=== PATIENT | male | born 1960 | race Caucasian/White ===

== ENCOUNTER 2016-09-30 12:39 | Emergency (ER) | payer OTHER ==
[~2016-09-30] VITALS: Ht 185.4 cm; Wt 143.0 kg
[~2016-09-30 12:39] MED LIST: B-COTAB41 PO; INDO25CA PO; LISI-360 PO; OMEP20TA39 PO
[2016-09-30 12:41] VITALS: BP 172/80; PULSE 90; RESP 17; TEMP 97.8; O2SAT 99
--- NOTE | 2016-09-30 12:52 | PD ---
HPI Chief Complaint: Pain: Acute or Chronic Time Seen by Provider: 12:52 Travel History International Travel<30 days: No Contact w/Intl Traveler<30days: No Traveled to known affect area: No History of Present Illness HPI 55-year-old male coming in with history of falling while pulling a pallet at work. Patient fell backwards landing on his right posterior lateral shoulder. Patient fell on 28 September 2016. This is his first visit for this accident. Patient complains of pain in the right posterior lateral shoulder with inability to raise his shoulder anteriorly posteriorly or laterally. Patient has a history of injury to the same shoulder 30 years ago with a pin placed according to the patient. Patient denies neck pain, head injury, or loss of consciousness. He denies injury to any part of his body other than the shoulder. He has no complaints of neuro symptoms in the right arm or hand including weakness, numbness, or tingling. He states the pain is a 10 over 10, and worse with any type of movement of the right shoulder. He is allergic to penicillin. PFSH Past Medical History High Cholesterol: Yes Past Surgical History Other Surgery: Yes (GASTROPLASTY) Social History Alcohol Use: No Tobacco Use: No Substance Use: No Allergies-Medications (Allergen,Severity, Reaction): Coded Allergies: Penicillin (Verified Allergy, Intermediate, FACE TURNS RED, 09/30/16) Reported Meds & Prescriptions Reported Meds & Active Scripts Active Review of Systems Except as stated in HPI: all other systems reviewed are Neg General / Constitutional: No: Fever Eyes: No: Visual changes HENT: No: Headaches Cardiovascular: No: Chest Pain or Discomfort Respiratory: No: Shortness of Breath Gastrointestinal: No: Abdominal Pain Genitourinary: No: Dysuria Musculoskeletal: No: Pain Skin: No Rash Neurologic: No: Weakness Psychiatric: No: Depression Endocrine: No: Polydipsia Hematologic/Lymphatic: No: Easy Bruising Physical Exam Narrative GENERAL: Patient appears in mild to moderate distress. SKIN: Warm and dry. Normal color. Normal turgor. No signs of trauma to the right arm or shoulder. HEAD: Atraumatic. Normocephalic. EYES: Pupils equal and round. No scleral icterus. No injection or drainage. ENT: No nasal bleeding or discharge. Mucous membranes pink and moist. Pharynx is normal. NECK: Trachea midline. No bony tenderness or step-off. Range of motion is full. CARDIOVASCULAR: Regular rate and rhythm. RESPIRATORY: No accessory muscle use. Clear to auscultation. Breath sounds equal bilaterally. MUSCULOSKELETAL: Extremities without clubbing, cyanosis, or edema. No obvious deformities. Right shoulder does not have any obvious deformities or suggestion of dislocation. Patient has pain with motion more than palpation. Pain is worse with both active and passive motion with external rotation, posterior rotation, flexion or extension of the right shoulder. 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 NEUROLOGICAL: Awake and alert. No obvious cranial nerve deficits. Motor grossly within normal limits. Five out of 5 muscle strength in the arms and legs except as noted in muscle skeletal exam.. Normal speech. PSYCHIATRIC: Appropriate mood and affect; insight and judgment normal. Data Data Last Documented VS Vital Signs Date Time Temp Pulse Resp B/P Pulse Ox O2 Delivery O2 Flow Rate FiO2 09/30/16 12:41 97.8 90 17 172/80 99 Orders Shoulder, Complete (>2vws) (09/30/16 13:02) Ice/Cold Pack (09/30/16 13:02) Prednisone (Deltasone) (09/30/16 13:45) MDM Medical Decision Making Medical Screen Exam Complete: Yes Emergency Medical Condition: Yes Differential Diagnosis Fall workplace. Right shoulder contusion. Right shoulder rotator cuff injury. Possible fracture. Narrative Course Patient is medically stable at time of exam. X-ray of the right shoulder is obtained. X-ray shows no acute fracture or dislocation per radiologist. Patient is given prednisone 60 mg by mouth. Patient is given prednisone 20 mg twice a day 5 days. Patient is given Lortab 5/325 one every 6 hours when necessary #20. Patient is to use ice and heat as needed. Patient is put on restrictions of no use of right arm until cleared by Worker's Comp. provider. Worker's comp paperwork is completed. Diagnosis Primary Impression: Fall (on)(from) sidewalk curb, initial encounter Additional Impressions: Right shoulder injury Qualified Code: S49.91XA - Right shoulder injury, initial encounter Work related injury Patient Instructions: General Instructions Additional Instructions: X-ray shows no acute fracture or dislocation per radiologist. Patient is given prednisone 60 mg by mouth. Patient is given prednisone 20 mg twice a day 5 days. Patient is given Lortab 5/325 one every 6 hours when necessary #20. Patient is to use ice and heat as needed. Patient is put on restrictions of no use of right arm until cleared by Worker's Comp. provider. Worker's comp paperwork is completed. Med/Other Pt SpecificInfo: Prescription(s) given Disposition: 01 DISCHARGE HOME Condition: Stable Jose Meyer Sep 30, 2016 12:52
--- NOTE | 2016-09-30 13:28 | RADRPT ---
EXAM DATE/TIME: 09/30/2016 13:26 [facility] COMPARISON: No previous studies available for comparison. INDICATIONS : Fall. Right shoulder pain. MEDICAL HISTORY : None. SURGICAL HISTORY : None. ENCOUNTER: Initial ACUITY: 1 day PAIN SCORE: 6/10 LOCATION: Right scapular FINDINGS: Multiple view examination of the right shoulder demonstrates no evidence of fracture or dislocation. Severe arthritic changes. The screw through the glenoid. No acute fracture. CONCLUSION: Prominent degenerative changes. Post surgical changes. No fracture. Dipak Grimes MD on September 30, 2016 at 13:26 Board Certified Radiologist. This report was verified electronically.
[2016-09-30] MEDS ORDERED: predniSONE 20 MG TAB PO ONE (13:45)
[2016-09-30] MEDS ORDERED: HYDR-3533 PO (13:51)
[2016-09-30] MEDS ORDERED: PRED20 PO (13:51)
== END 2016-09-30 14:43 | disposition home or self-care (01) ==
LOC: NEPB 12:39
DX: S49.91XA Unspecified injury of right shoulder and upper arm, initial encounter (principal); E78.00 Pure hypercholesterolemia, unspecified; W10.1XXA Fall (on)(from) sidewalk curb, initial encounter; Y93.89 Activity, other specified; Y99.0 Civilian activity done for income or pay
CPT/HCPCS: 73030; 99284; J7512

== ENCOUNTER 2017-05-08 08:47 | Emergency (ER) | payer OTHER ==
[~2017-05-08] VITALS: Ht 185.4 cm; Wt 145.0 kg
[~2017-05-08 08:47] MED LIST changes: -B-COTAB41 PO; +HYDR-3533 PO; -INDO25CA PO; -LISI-360 PO; -OMEP20TA39 PO; +PRED20 PO
[2017-05-08 08:52] VITALS: BP 140/73; PULSE 88; RESP 19; TEMP 98.7; O2SAT 98
[2017-05-08] MEDS ORDERED: OFLO0.3D9 RIGHT EAR (09:24)
[2017-05-08] MEDS ORDERED: IBUP800T23 PO (09:24)
--- NOTE | 2017-05-08 09:25 | PD ---
HPI Chief Complaint: ENT Complaint Time Seen by Provider: 09:19 Travel History International Travel<30 days: No Contact w/Intl Traveler<30days: No Traveled to known affect area: No History of Present Illness HPI 56-year-old male presents emergency Department with complaint of right ear pain and decreased hearing 2 days. Says he was treated for right ear infection 2 weeks ago with azithromycin. The ear infection kind of went away but still had a little bit of a pain throughout with worsening over the past 2 days. Denies fever, vomiting, nasal congestion, sore throat, cough. 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 Has been taking aspirin and Tylenol for symptom management. Symptoms are mild in severity. Has no other medical complaints. Allergies to penicillin. No other modifying factors or associated signs and symptoms. PFSH Past Medical History High Cholesterol: Yes Past Surgical History Other Surgery: Yes (GASTROPLASTY) Social History Alcohol Use: No Tobacco Use: No Substance Use: No Allergies-Medications (Allergen,Severity, Reaction): Coded Allergies: penicillin G (Verified Allergy, Intermediate, FACE TURNS RED, 05/08/17) Reported Meds & Prescriptions Reported Meds & Active Scripts Active Ibuprofen 800 Mg Tab 800 Mg PO Q8H PRN Ofloxacin Otic Drops 0.3 % Drops 10 Drop RIGHT EAR DAILY 7 Days Review of Systems Except as stated in HPI: all other systems reviewed are Neg Physical Exam Narrative GENERAL: Well-nourished, well-developed male patient, in no acute distress; afebrile, nontoxic-appearing SKIN: Warm and dry. No rash. HEAD: Atraumatic. Normocephalic. EYES: Pupils equal and round. No scleral icterus. No injection or drainage. EARS: Bilateral pinnae and external canals appear within normal limits. Unable to visualize right tympanic membrane secondary to ear canal being edematous and painful. Left tympanic membrane without erythema, loss of landmarks, and dullness; without perforation. ENT: Mucosa pink and moist. Oral Pharynx without erythema; without edema or exudates. No uvular edema. No uvular, palatal, or tonsillar deviation. Airway patent. NECK: Trachea midline. No lymphadenopathy. CARDIOVASCULAR: Regular rate. RESPIRATORY: No accessory muscle use. GASTROINTESTINAL: Obese. MUSCULOSKELETAL: No obvious deformities. No clubbing. No cyanosis. No edema. NEUROLOGICAL: Awake and alert. Oriented 3. No obvious cranial nerve deficits. Motor grossly within normal limits. Normal speech. Moves all extremities. 5/5 strength to all extremities. PSYCHIATRIC: Appropriate mood and affect; insight and judgment normal. Data Data Last Documented VS Vital Signs Date Time Temp Pulse Resp B/P (MAP) Pulse Ox O2 Delivery O2 Flow Rate FiO2 05/08/17 08:52 98.7 88 19 140/73 (95) 98 Orders Orders Ibuprofen (Motrin) (05/08/17 09:45) [facility] Medical Decision Making Medical Screen Exam Complete: Yes Emergency Medical Condition: Yes Medical Record Reviewed: Yes Differential Diagnosis Otitis externa, otitis media, foreign body, cerumen impaction Narrative Course 56-year-old male physical exam consistent with right otitis externa. She is afebrile and nontoxic-appearing. Denies fever, vomiting. Was treated for ear infection with azithromycin 2 weeks ago without complete resolution. Ear wick placed. Ofloxacin and ibuprofen prescribed for home. Patient's [facility] Instructed patient to follow up with primary care provider. Patient verbalizes understanding and agreement with treatment plan. Patient is medically cleared and stable for discharge. Discussed reasons to return to the emergency department. Patient agrees with treatment plan. The patients vital signs are stable and the patient is stable for outpatient follow-up and treatment. Patient discharged home, stable and in no acute distress. Procedures Procedure Narrative Right ear wick placement: Tweezers were used to place an ear wick to the right ear canal. Patient tolerated well. Diagnosis Primary Impression: Right otitis externa Qualified Codes: H60.91 - Unspecified otitis externa, right ear Referrals: Primary Care Physician Patient Instructions: General Instructions, Otitis Externa (ED) Departure Forms: Tests/Procedures, Work Release Enter return to work date: May 09, 2017 Additional Instructions: Use antibiotics as prescribed and complete full course Ibuprofen or Tylenol as directed and as needed to reduce pain and fever [id number] antihistamines or decongestants as directed and as needed for symptom management Avoid getting water in the ears Do not put anything in the ears; including Q-tips Follow-up with primary care provider Return to the emergency department immediately with worsening of symptoms Med/Other Pt SpecificInfo: Prescription(s) given Scripts Ibuprofen (Ibuprofen) 800 Mg Tab 800 MG PO Q8H Y for PAIN SCALE 1 TO 10, #30 TAB 0 Refills Prov: Fransisca Vogel 05/08/17 Ofloxacin Otic Drops (Ofloxacin Otic Drops) 0.3 % Drops 10 DROP RIGHT EAR DAILY for Infection for 7 Days, #1 BOTTLE 0 Refills Prov: Fransisca Vogel 05/08/17 Disposition: 01 DISCHARGE HOME Condition: Stable Fransisca Vogel May 08, 2017 09:25
[2017-05-08] MEDS ORDERED: IBUPROFEN 800 MG TAB PO ONE (09:45)
== END 2017-05-08 09:37 | disposition home or self-care (01) ==
LOC: NEPK 08:47
DX: H60.91 Unspecified otitis externa, right ear (principal); E78.00 Pure hypercholesterolemia, unspecified
CPT/HCPCS: 99283